=== PATIENT | male | born 1955 | race Caucasian/White ===

== ENCOUNTER 2017-11-04 08:23 | Day surgery (SDC) | payer MEDICARE | END 2017-11-04 10:00 | disposition home or self-care (01) | LOC: SDC-PAIN 08:23 | PROVIDERS: ATTEND Internal Medicine | DX: Z53.9 Procedure and treatment not carried out, unspecified reason (principal) ==

== ENCOUNTER 2019-04-21 03:05 | Observation (INO) | payer MEDICARE ==
[2019-04-21] MEDS ORDERED: Sodium Chloride 0.9% 1000 ML 1,000 ML IV SCH ×2 (03:30→05:30)
--- NOTE | 2019-04-21 03:33 | ERPHSYRPT ---
- History of Present Illness Time Seen by Provider: 04/21/19 03:28 Source: patient Exam Limitations: no limitations Patient Subjective Stated Complaint: Confusion Triage Nursing Assessment: Patient brought into ED via EMS and transferred to bed. Patient here for confusion. Patient's son calls him every night from [place] to check on patient. Patient wasn't acting right so patient's son called aunt to go check on him. When aunt arrived she stated patient was alert, but confused. Patient Alert to person and place, but disoriented to time. 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 Patient able to MUSE well. Patient denies pain or discomfort. Physician History: 64-year-old white male brought by medics with complaint that the patient was "not acting right. Patient apparently noted by his son in [place] that the patient wasn't acting right this apparently contacted the patient's aunt who contacted medics. Patient is oriented to person and place he is not oriented to time. He feels like he might be having a problem with his blood sugars., Patient denies fever shortness of breath chest pain abdominal pain nausea vomiting Past medical history includes chronic back pain, high blood pressure, diabetes Past surgical history includes eye surgery Social history patient denies tobacco alcohol or illicit drug use Timing/Duration: today Severity: moderate Modifying Factors: Improves With: nothing Associated Symptoms: other (patient was thought to be not acting right by family ), No nausea, No vomiting, No abdominal pain, No shortness of breath, No heartburn, No diaphoresis, No cough, No chills, No chest pain, No fever, No headaches, No loss of appetite, No malaise, No rash, No syncope, No seizure, No weakness Allergies/Adverse Reactions: No Known Drug Allergies Allergy (Verified 04/21/19 03:08) Home Medications: Atenolol 50 mg [Tenormin 50 mg] 50 mg PO DAILY 01/08/17 [History] Gabapentin [Neurontin] 800 mg PO BID 01/08/17 [History] Insulin Aspart [Novolog Flexpen] 16 unit SQ TID 01/08/17 [History] Nortriptyline HCl 25 mg PO DAILY 01/08/17 [History] Sennosides [Senna] 8.6 mg PO DAILY 01/08/17 [History] Lisinopril 20 mg [Zestril 20 MG] 20 mg PO DAILY 12/08/17 [History] Amlodipine Besylate 10 mg PO DAILY 04/21/19 [History] Atorvastatin Calcium 20 mg PO DAILY 04/21/19 [History] Insulin Glargine,Hum.rec.anlog [Lantus] 70 units SQ HS 04/21/19 [History] Hx Influenza Vaccination/Date Given: No Hx Pneumococcal Vaccination/Date Given: No Immunizations Up to Date: Yes - Review of Systems Constitutional: No Fever, No Chills Eyes: No Symptoms Ears, Nose, & Throat: No Symptoms Respiratory: No Cough, No Dyspnea Cardiac: No Chest Pain, No Edema, No Syncope Abdominal/Gastrointestinal: No Abdominal Pain, No Nausea, No Vomiting, No Diarrhea Genitourinary Symptoms: No Dysuria Musculoskeletal: No Back Pain, No Neck Pain Neurological: Other (family thought patient was not acting right), No No Symptoms, No Dizziness, No Focal Weakness, No Gait Changes, No Headache, No Irritability, No Lethargy, No Paralysis, No Parasthesia, No Seizure, No Sensory Changes, No Speech Changes, No Tics, No Tremors, No Vertigo Psychological: No Symptoms Endocrine: No Symptoms All Other Systems: Reviewed and Negative - Past Medical History Neurological History: No Pertinent History ENT History: No Pertinent History Cardiac History: Hypertension Respiratory History: No Pertinent History Endocrine Medical History: Diabetes Type II, Other Musculoskeletal History: No Pertinent History GI Medical History: No Pertinent History History: No Pertinent History Psycho-Social History: No Pertinent History Male Reproductive Disorders: No Pertinent History Other Medical History: IDDM, KIDNEY FAILURE - Past Surgical History Past Surgical History: No Neuro Surgical History: No Pertinent History Cardiac: No Pertinent History Respiratory: No Pertinent History Gastrointestinal: No Pertinent History Genitourinary: No Pertinent History Musculoskeletal: No Pertinent History Male Surgical History: No Pertinent History - Social History Smoking Status: Never smoker Exposure to second hand smoke: No Drug Use: none Patient Lives Alone: No - Nursing Vital Signs Nursing Vital Signs: Initial Vital Signs Pulse Rate 75 04/21/19 03:08 Respiratory Rate 18 04/21/19 03:08 Blood Pressure 174/109 04/21/19 03:08 O2 Sat by Pulse Oximetry 96 04/21/19 03:08 Pain Scale Pain Intensity 0 - Physical Exam General Appearance: no apparent distress, alert, other (wwell-developed well- nourished white male oriented to person and place ) Eye Exam: other (pupils are small, hypertelorism extraocular muscles are intacted, sclera are somewhat injected) Ears, Nose, Throat Exam: normal ENT inspection, TMs normal, pharynx normal, moist mucous membranes Neck Exam: normal inspection, non-tender, supple, full range of motion Respiratory Exam: normal breath sounds, lungs clear, No respiratory distress Cardiovascular Exam: regular rate/rhythm, normal heart sounds, normal peripheral pulses, capillary refill <2 sec Gastrointestinal/Abdomen Exam: soft, normal bowel sounds, No tenderness, No mass Back Exam: normal inspection Extremity Exam: normal inspection, normal range of motion, pelvis stable Neurologic Exam: 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, 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, sensation nml, other (patient alert, oriented to person and place, cranial nerves II though XII intact, die cast die maker equal 5 over 5 no pronator drift normal finger to nose speech normal), No oriented x 3 (Oriented to person and palce), No motor deficits, No sensory deficit Skin Exam: normal color, warm, dry, No rash Lymphatic Exam: No adenopathy SpO2 Interpretation: normal (96%) SpO2: 96 - Course Nursing assessment & vital signs reviewed: Yes EKG Interpreted by Me: RATE (80 bpm), Sinus Rhythm, NORMAL AXIS, Other (EKG sinus rhythm with artif 80 beats per minute nor Q waves in lead [address] or T wave changes no old EKG for comparison.) - CT Exams Head CT Interpretation: Tele-radiologist Report (head CT: Impression: No intracranial abnormities) Ordered Tests: Active Orders 24 hr Category Date Time Status EKG-ER Only STAT Care 04/21/19 03:25 Active IV Insertion STAT Care 04/21/19 03:25 Active Pulse Oximetry (ED) STAT Care 04/21/19 03:25 Active HEAD WITHOUT CONTRAST [CT] Stat Exams 04/21/19 03:25 Taken ACETAMINOPHEN Stat Lab 04/21/19 03:40 Completed CBC W DIFF Stat Lab 04/21/19 03:40 Completed CMP Stat Lab 04/21/19 03:40 Completed ETHYL ALCOHOL Stat Lab 04/21/19 03:40 Completed Lactic Acid Stat Lab 04/21/19 03:55 Completed Manual Differential NC Stat Lab 04/21/19 03:40 Completed SALICYLATE Stat Lab 04/21/19 03:40 Completed TSH [TSH, 3RD Generation] Stat Lab 04/21/19 03:40 Completed UA W/RFX UR CULTURE Stat Lab 04/21/19 04:35 Completed Urine Triage Profile Stat Lab 04/21/19 04:35 Completed VENOUS BLOOD GAS Stat Lab 04/21/19 03:55 Completed Medication Summary Generic Name Dose Route Start Last Admin Trade Name Soila PRN Reason Stop Dose Admin Sodium Chloride 1,000 mls @ 100 mls/hr 04/21/19 03:30 04/21/19 03:44 Sodium Chloride 0.9% 1000 Ml IV 05/21/19 03:29 100 mls/hr .Q10H LEONIDES Administration Lab/Rad Data: Laboratory Result Diagrams 04/21/19 03:40 04/21/19 03:40 Laboratory Results 04/21/19 04/21/19 04/21/19 Range/Units 04:35 04:35 03:55 WBC (4.0-10.5) K/mm3 RBC (4.1-5.6) M/mm3 Hgb (12.5-18.0) gm/dl Hct (42-50) % MCV (78-100) fl MCH (26-32) pg MCHC (32-36) g/dl RDW (11.5-14.0) % Plt Count (150-450) K/mm3 MPV (6-9.5) fl Absolute Granulocytes (1.4-6.9) Segmented Neutrophils (36.-66.) % Lymphocytes (Manual) (24-44) % Monocytes (Manual) (0.0-12.0) % Eosinophils (Manual) (0.00-3.0) % Platelet Estimate (NORMAL) RBC Morphology pO2/FiO2 Ratio 21.0 % VBG pH 7.39 (7.32-7.42) VBG pCO2 at Pat Temp 44 (42-55) mm/Hg VBG pO2 at Pat Temp 32 (25-40) mm/Hg VBG HCO3 26.6 (22-28) meq/L VBG O2 Sat (Abdoul) 70.1 L (95-100) VBG Base Excess 1.2 (-2.0-2.0) VBG Hemoglobin 15.9 VBG Carboxyhemoglobin 3.2 (0.0-6.9) % T HGB POC Potassium 3.5 (3.5-5.1) Sodium (137-145) mmol/L Potassium (3.5-5.1) mmol/L Chloride (98-107) mmol/L Carbon Dioxide (22-30) mmol/L Anion Gap (5-15) MEQ/L BUN (9-20) mg/dL Creatinine (0.66-1.25) mg/dL Estimated GFR ML/MIN Glucose (74-106) mg/dL Lactic Acid 1.6 (0.4-2.0) Calcium (8.4-10.2) mg/dL Total Bilirubin (0.2-1.3) mg/dL AST (17-59) U/L ALT (0-50) U/L Alkaline Phosphatase (38-126) U/L Serum Total Protein (6.3-8.2) g/dL Albumin (3.5-5.0) g/dL Free T4 (0.76-1.46) ng/dL TSH 3rd Generation (0.47-4.68) mIU/L Urine Color YELLOW (YELLOW) Urine Appearance SLIGHTLY CLOUDY (CLEAR) Urine pH 6.0 (5-6) Ur Specific [place] 1.029 (1.005-1.025) Urine Protein >=500 (Negative) Urine Ketones SMALL (NEGATIVE) Urine Blood SMALL (0-5) James/ul Urine Nitrite NEGATIVE (NEGATIVE) Urine Bilirubin NEGATIVE (NEGATIVE) Urine Urobilinogen NEGATIVE (0-1) mg/dL Ur Leukocyte Esterase NEGATIVE (NEGATIVE) Urine WBC (Auto) 3-5 (0-5) /HPF Urine RBC (Auto) 3-5 (0-2) /HPF U Hyaline Cast (Auto) 0-2 (0-2) /LPF U Epithel Cells (Auto) NONE (FEW) /HPF Urine Bacteria (Auto) NONE (NEGATIVE) /HPF Urine Mucus (Auto) SLIGHT (NEGATIVE) /HPF Urine Culture Reflexed NO (NO) Urine Glucose >=500 (NEGATIVE) mg/dL Salicylates (2-20) mg/dL Urine Opiates Level NEGATIVE (NEGATIVE) Ur Methadone NEGATIVE (NEGATIVE) Acetaminophen (10-30) ug/ml Urine Barbiturates NEGATIVE (NEGATIVE) Ur Phencyclidine (PCP) NEGATIVE (NEGATIVE) Urine Amphetamine NEGATIVE (NEGATIVE) U Benzodiazepine Level NEGATIVE (NEGATIVE) Urine Cocaine NEGATIVE (NEGATIVE) Urine Marijuana (THC) NEGATIVE (NEGATIVE) Ethyl Alcohol (0-10) mg/dL 04/21/19 04/21/19 04/21/19 Range/Units 03:40 03:40 03:40 WBC (4.0-10.5) K/mm3 RBC (4.1-5.6) M/mm3 Hgb (12.5-18.0) gm/dl Hct (42-50) % MCV (78-100) fl MCH (26-32) pg MCHC (32-36) g/dl RDW (11.5-14.0) % Plt Count (150-450) K/mm3 MPV (6-9.5) fl Absolute Granulocytes (1.4-6.9) Segmented Neutrophils (36.-66.) % Lymphocytes (Manual) (24-44) % Monocytes (Manual) (0.0-12.0) % Eosinophils (Manual) (0.00-3.0) % Platelet Estimate (NORMAL) RBC Morphology pO2/FiO2 Ratio % VBG pH (7.32-7.42) VBG pCO2 at Pat Temp (42-55) mm/Hg VBG pO2 at Pat Temp (25-40) mm/Hg VBG HCO3 (22-28) meq/L VBG O2 Sat (Abdoul) (95-100) VBG Base Excess (-2.0-2.0) VBG Hemoglobin VBG Carboxyhemoglobin (0.0-6.9) % T HGB POC Potassium (3.5-5.1) Sodium 137 (137-145) mmol/L Potassium 3.5 (3.5-5.1) mmol/L Chloride 100 (98-107) mmol/L Carbon Dioxide 26 (22-30) mmol/L Anion Gap 15.1 H (5-15) MEQ/L BUN 18 (9-20) mg/dL Creatinine 1.85 H (0.66-1.25) mg/dL Estimated GFR 39.6 ML/MIN Glucose 240 H (74-106) mg/dL Lactic Acid (0.4-2.0) Calcium 9.2 (8.4-10.2) mg/dL Total Bilirubin 1.40 H (0.2-1.3) mg/dL AST 60 H (17-59) U/L ALT 47 (0-50) U/L Alkaline Phosphatase 117 (38-126) U/L Serum Total Protein 7.8 (6.3-8.2) g/dL Albumin 4.1 (3.5-5.0) g/dL Free T4 1.50 H (0.76-1.46) ng/dL TSH 3rd Generation 8.770 H (0.47-4.68) mIU/L Urine Color (YELLOW) Urine Appearance (CLEAR) Urine pH (5-6) Ur Specific [place] (1.005-1.025) Urine Protein (Negative) Urine Ketones (NEGATIVE) Urine Blood (0-5) James/ul Urine Nitrite (NEGATIVE) Urine Bilirubin (NEGATIVE) Urine Urobilinogen (0-1) mg/dL Ur Leukocyte Esterase (NEGATIVE) Urine WBC (Auto) (0-5) /HPF Urine RBC (Auto) (0-2) /HPF U Hyaline Cast (Auto) (0-2) /LPF U Epithel Cells (Auto) (FEW) /HPF Urine Bacteria (Auto) (NEGATIVE) /HPF Urine Mucus (Auto) (NEGATIVE) /HPF Urine Culture Reflexed (NO) Urine Glucose (NEGATIVE) mg/dL Salicylates < 1.0 L (2-20) mg/dL Urine Opiates Level (NEGATIVE) Ur Methadone (NEGATIVE) Acetaminophen < 10 L (10-30) ug/ml Urine Barbiturates (NEGATIVE) Ur Phencyclidine (PCP) (NEGATIVE) Urine Amphetamine (NEGATIVE) U Benzodiazepine Level (NEGATIVE) Urine Cocaine (NEGATIVE) Urine Marijuana (THC) (NEGATIVE) Ethyl Alcohol < 10 (0-10) mg/dL 04/21/19 Range/Units 03:40 WBC 9.5 (4.0-10.5) K/mm3 RBC 5.30 (4.1-5.6) M/mm3 Hgb 15.3 (12.5-18.0) gm/dl Hct 44.9 (42-50) % MCV 84.7 (78-100) fl MCH 28.9 (26-32) pg MCHC 34.1 (32-36) g/dl RDW 14.0 (11.5-14.0) % Plt Count 274 (150-450) K/mm3 MPV 10.2 H (6-9.5) fl Absolute Granulocytes 6.93 H (1.4-6.9) Segmented Neutrophils 77 H (36.-66.) % Lymphocytes (Manual) 16 L (24-44) % Monocytes (Manual) 6 (0.0-12.0) % Eosinophils (Manual) 1 (0.00-3.0) % Platelet Estimate NORMAL (NORMAL) RBC Morphology NORMAL pO2/FiO2 Ratio % VBG pH (7.32-7.42) VBG pCO2 at Pat Temp (42-55) mm/Hg VBG pO2 at Pat Temp (25-40) mm/Hg VBG HCO3 (22-28) meq/L VBG O2 Sat (Abdoul) (95-100) VBG Base Excess (-2.0-2.0) VBG Hemoglobin VBG Carboxyhemoglobin (0.0-6.9) % T HGB POC Potassium (3.5-5.1) Sodium (137-145) mmol/L Potassium (3.5-5.1) mmol/L Chloride (98-107) mmol/L Carbon Dioxide (22-30) mmol/L Anion Gap (5-15) MEQ/L BUN (9-20) mg/dL Creatinine (0.66-1.25) mg/dL Estimated GFR ML/MIN Glucose (74-106) mg/dL Lactic Acid (0.4-2.0) Calcium (8.4-10.2) mg/dL Total Bilirubin (0.2-1.3) mg/dL AST (17-59) U/L ALT (0-50) U/L Alkaline Phosphatase (38-126) U/L Serum Total Protein (6.3-8.2) g/dL Albumin (3.5-5.0) g/dL Free T4 (0.76-1.46) ng/dL TSH 3rd Generation (0.47-4.68) mIU/L Urine Color (YELLOW) Urine Appearance (CLEAR) Urine pH (5-6) Ur Specific [place] (1.005-1.025) Urine Protein (Negative) Urine Ketones (NEGATIVE) Urine Blood (0-5) James/ul Urine Nitrite (NEGATIVE) Urine Bilirubin (NEGATIVE) Urine Urobilinogen (0-1) mg/dL Ur Leukocyte Esterase (NEGATIVE) Urine WBC (Auto) (0-5) /HPF Urine RBC (Auto) (0-2) /HPF U Hyaline Cast (Auto) (0-2) /LPF U Epithel Cells (Auto) (FEW) /HPF Urine Bacteria (Auto) (NEGATIVE) /HPF Urine Mucus (Auto) (NEGATIVE) /HPF Urine Culture Reflexed (NO) Urine Glucose (NEGATIVE) mg/dL Salicylates (2-20) mg/dL Urine Opiates Level (NEGATIVE) Ur Methadone (NEGATIVE) Acetaminophen (10-30) ug/ml Urine Barbiturates (NEGATIVE) Ur Phencyclidine (PCP) (NEGATIVE) Urine Amphetamine (NEGATIVE) U Benzodiazepine Level (NEGATIVE) Urine Cocaine (NEGATIVE) Urine Marijuana (THC) (NEGATIVE) Ethyl Alcohol (0-10) mg/dL - Progress Progress: improved Progress Note: 04/21/19 05:07 This is a 64-year-old white male with history of chronic back pain, high blood pressure, diabetes He arrives with medics the patient apparently had been talking to his son who lives in [place] and his son felt like the patient just wasn't himself. The patient aunt came out and fell to the patient still wasn't himself. Medics were summoned patient felt with that he had a high blood sugar however his blood sugar was around 140 initially patient did not want to come in however medics were summoned again to the patient's house and they brought him into [place] emergency room to be evaluated. On arrival patient is oriented to person and place he does not know the date or the year. He has normal speech. He has no facial droop. 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 He is able to move all extremities. There is no pronator drift. Patient without focal deficits. Patient had a viral severe temperature 90.2 pulse 75 respirations 18 blood pressure initial 174 109 it is now 197/98 oxygen saturation is 96% patient has an EKG remarkable for sinus rhythm 80 beats per minute normal axis no acute ST or T wave changes are noted patient's head CT is read by virtual radiology as normal head CT Patient with chemistry showing sodium 137 potassium 3.5 chloride 100 bicarbonate 26 BUN 18 creatinine 1.85 glucose is 240 total bilirubin is somewhat elevated at 1.4 AST is 60 anion gap is 15.1 acetaminophen level is less than 10 salicylate level is less than 1.0 alcohol is less than 10 Urine drug screen is negative Venous gases pH 7.39 PCO2 44 patient's thyroid studies free T4-1 0.5 normal is 0.76-1.46. TSH is 8.77 normal is 0.472 4.68 Patient is given normal saline at 100 mL per hour I discussed the patient's case with Dr. wagoner. Will go ahead and place patient on observation provide IV fluids continued telemetry continue every [address] And place patient on sliding scale insulin coverage. Impression 1 mental status change. 2 confusion. - Departure Departure Disposition: Observation Clinical Impression: Confusion Change in mental status Qualifiers: Altered mental status type: unspecified Qualified Code(s): R41.82 - Altered mental status, unspecified Condition: Fair Critical Care Time: No Referrals: TALIA EUCEDA [Primary Care Provider] -
[2019-04-21] MEDS ORDERED: Sodium Chloride 0.9% 1000 ML 1,000 ML ONE (03:42)
[2019-04-21 04:01] LABS: Lactic Acid 1.6 (0.4-2.0); VBG BASE EXCESS 1.2 (-2.0-2.0); VBG CARBOXYHEMOGLOBIN 3.2 % T HGB (0.0-6.9); VBG HCO3- 26.6 meq/L (22-28); VBG HEMOGLOBIN 15.9; VBG O2 SATURATION 70.1 (95-100); VBG POTASSIUM 3.5 (3.5-5.1); VBG pH 7.39 (7.32-7.42)
[2019-04-21 04:03] LABS: Granulocyte Absolute (ANC) 6.93 (1.4-6.9); Hematocrit 44.9 % (42-50); Hemoglobin 15.3 gm/dl (12.5-18.0); Mean Cell Volume 84.7 fl (78-100); Mean Corpuscular Hemoglobin 28.9 pg (26-32); Mean Corpuscular Hgb Concent. 34.1 g/dl (32-36); Mean Platelet Volume 10.2 fl (6-9.5); Platelet Count 274 K/mm3 (150-450); White Blood Count 9.5 K/mm3 (4.0-10.5)
[2019-04-21 04:13] LABS: ALBUMIN 4.1 g/dL (3.5-5.0); ALKALINE PHOSPHATASE 117 U/L (38-126); ANION GAP 15.1 MEQ/L (5-15); BLOOD UREA NITROGEN 18 mg/dL (9-20); CHLORIDE 100 mmol/L (98-107); Calcium 9.2 mg/dL (8.4-10.2); Carbon Dioxide 26 mmol/L (22-30); Creatinine 1 1.85 mg/dL (0.66-1.25); Glucose 240 mg/dL (74-106); Potassium 3.5 mmol/L (3.5-5.1); SGOT/AST 60 U/L (17-59); SGPT/ALT 47 U/L (0-50); SODIUM 137 mmol/L (137-145); Total Protein 7.8 g/dL (6.3-8.2)
[2019-04-21 04:14] LABS: ACETAMINOPHEN < 10 ug/ml (10-30); ETHYL ALCOHOL < 10 mg/dL (0-10); SALICYLATE < 1.0 mg/dL (2-20)
[2019-04-21 04:47] LABS: Eosinophil 1 % (0.00-3.0); Lymphocytes 16 % (24-44); Monocyte 6 % (0.0-12.0); Neutrophils 77 % (36.-66.); Platelet Estimate NORMAL (NORMAL); Total Cells Counted 100
[2019-04-21 04:50] LABS: Appearance SLIGHTLY CLOUDY (CLEAR); Bilirubin NEGATIVE (NEGATIVE); Blood SMALL Ery/ul (0-5); Glucose >=500 mg/dL (NEGATIVE); Hyaline Casts 0-2 /LPF (0-2); Ketones SMALL (NEGATIVE); Leukocyte Esterase NEGATIVE (NEGATIVE); Mucus SLIGHT /HPF (NEGATIVE); Nitrite NEGATIVE (NEGATIVE); Protein,Urine Dip >=500 (Negative); Specific Gravity 1.029 (1.005-1.025); Urobilinogen NEGATIVE mg/dL (0-1)
[2019-04-21 04:58] LABS: Amphetamine,Urine NEGATIVE (NEGATIVE); Barbiturate,Urine NEGATIVE (NEGATIVE); Benzodiazepine,Urine NEGATIVE (NEGATIVE); Cocaine,Urine NEGATIVE (NEGATIVE); Methadone,Urine NEGATIVE (NEGATIVE); Opiate,Urine NEGATIVE (NEGATIVE); PCP,Urine NEGATIVE (NEGATIVE); THC,Urine NEGATIVE (NEGATIVE)
[2019-04-21] MEDS: NovoLOG Insulin SQ PRN ×2 (08:12→10:56)
--- NOTE | 2019-04-21 08:44 | XRAY ---
Indication: Altered mental status. High blood sugar. Multiple contiguous axial images obtained through the head without contrast. Comparison: None Normal appearing brain parenchyma, ventricles, and bony calvarium. Visualized paranasal sinuses and mastoid air cells are clear. Impression: Normal CT head without contrast exam. Comment: Preliminary interpretation was made by [facility]. No discrepancy. CTDI 69.38
[2019-04-21 10:53] VITALS: BP 136/84; PULSE 78; O2SAT 98
--- NOTE | 2019-04-25 08:57 | SSS ---
DISCHARGE DIAGNOSES: 1) CHANGE IN MENTAL STATUS. 2) DIABETES MELLITUS TYPE 2. 3) DIABETIC PERIPHERAL NEUROPATHY. 4) DIABETIC NEPHROPATHY. 5) HYPERTENSION. HISTORY: The patient is a 64 year-old white male patient who apparently lives alone. His mental capacity is somewhat diminished routinely. Apparently his son calls him every night from [place] to check on him and he felt he was a bit off. He therefore called the patient's aunt who went in and checked on him and was found to be somewhat confused. He was brought into the emergency room and evaluation was performed. Nothing specific was found including negative CT scan of the head. He was brought in for observation, neural status checks. By the morning the patient was feeling much better, was answering all questions appropriately and was felt to be ready for discharge home. PHYSICAL EXAMINATION: The patient's vital signs in the emergency room showed a pulse of 75, respiratory rate 18, blood pressure 174/109. O2 saturation 96%. HEENT: Normocephalic, atraumatic. Pupils equal round reactive to light. Extraocular movements intact. Oropharynx is pink and moist. NECK: Supple without lymphadenopathy, thyromegaly or JVD. CHEST: Clear to auscultation. HEART: Regular rate and rhythm without murmurs, rubs or gallops. ABDOMEN: Soft. No palpable masses. EXTREMITIES: Without cyanosis, clubbing or edema. There was noted some redness over the shins but it was not warm or tender. The feet were closely examined and found no evidence of any wounds. NEUROLOGIC: The patient's neurologic status presently is alert and oriented x3. He actively gave day, date, time, place and President. LAB DATA AND TESTS: The lab studies showed his TSH to be somewhat elevated at 8.77. His hemoglobin was 15.3, PLT count 274,000, white blood cell count 9,500. His UA was slightly cloudy with specific gravity of 1.029, greater than 500 protein and glucose, 3 to 5 white blood cells and red blood cells on the urine. Urine drug screen was negative. Tylenol, acetaminophen and alcohol were all essentially negative. His free T4 was 1.50 which is slightly high. His sugar was 240, BUN 18, creatinine 1.85. Electrolytes were normal. Total bilirubin was slightly high at 1.40. Venous blood gas showed pH 7.39, pCO2 44. Again the CT scan of the head showed no intracranial abnormalities. HOSPITAL COURSE: At this point the patient is essentially back to normal according to his aunt and being awake and alert, sitting up on the side of the bed answering all questions appropriately the patient was felt to be okay for discharge home. The patient and his aunt did report that there will be someone staying with him over the next couple of days 11/05 for monitoring and they are aware that they can of course bring him back to the hospital any time if he feels like he has any deterioration in his status.
== END 2019-04-21 12:00 | disposition home or self-care (01) ==
LOC: ED 03:05 → MED SURG 05:23
PROVIDERS: ADMIT Internal Medicine; ATTEND Internal Medicine
DX: R41.82 Altered mental status, unspecified (principal); E11.42 Type 2 diabetes mellitus with diabetic polyneuropathy; E11.21 Type 2 diabetes mellitus with diabetic nephropathy; I10 Essential (primary) hypertension; Z79.4 Long term (current) use of insulin; Z79.899 Other long term (current) drug therapy
CPT/HCPCS: 36000; 36415; 70450; 80053; 80307; 81001; 82140; 82805; 82962; 83605; 84439; 84443; 85025; 93005; 93268; 94760; 96360; 96361; 99285; G0378; G0480; G0481; A9270-GY

== ENCOUNTER 2021-01-20 14:58 | Observation (INO) | payer MEDICARE ==
[2021-01-20] MEDS ORDERED: APRESOLINE 20 MG/ML INJ IV ONE ×3 (15:24→20:34)
[2021-01-20] MEDS ORDERED: Sodium Chloride 0.9% 1000 ML 1,000 ML ONE ×2 (15:24→22:34)
[2021-01-20] MEDS ORDERED: APRESOLINE 20 MG/ML INJ ONE ×2 (15:24→16:25)
[2021-01-20] MEDS: Sodium Chloride 0.9% 1000 ML 1,000 ML IV SCH ×2 (15:26→22:55)
--- NOTE | 2021-01-20 15:35 | ERPHSYRPT ---
- History of Present Illness Time Seen by Provider: 01/20/21 15:00 Source: patient, family, EMS Exam Limitations: clinical condition Patient Subjective Stated Complaint: pt alert, but confused to last name,date and time, BS 231. unsure if pt had hes insulin today, Triage Nursing Assessment: pt arrived per ambulance, alert but confused, resp easy, skin w.d/p.he has redness and scabbing to left lower leg,pt is unsure what happened Physician History: 65 years old with history of hypertension, hyperlipidemia, diabetes mellitus insulin-dependent is brought in the ER with chief complaint of altered mental status/confusion by EMS. Per report patient is confused and not acting at his baseline since morning. According to EMS patient has this happened multiple times in the past when his blood sugar goes out of control. EMS reports patient son who is the physician and POA reported "patient needs insulin whenever his blood sugar goes more than 200 he acts confused". Patient is awake and alert but not oriented, follows some commands, moving all 4 extremities grossly no focal deficit. No fever reported. No vomiting or diarrhea reported. Denies any chest pain. Patient blood pressure is in 250s on presentation. Prompt CT head is obtained. History is limited secondary to his confusion. Timing/Duration: today, sudden, worse Severity: moderate Character of Deficits: other Deficits: no difficulties Baseline/Normal Cognition: alert oriented x 3 Current Cognition: alert but confused Baseline Gait: walks w/o assistance Associated Symptoms: confusion, fatigue, No fever, No loss of consciousness, No vomiting, No weakness, No numbness/tingling in legs/feet, No seizures, No slurred speech, No vision changes, No chest pain Allergies/Adverse Reactions: No Known Drug Allergies Allergy (Verified 01/20/21 15:20) Home Medications: Atenolol 50 mg [Tenormin 50 mg] 50 mg PO DAILY 01/08/17 [History] Gabapentin [Neurontin] 800 mg PO BID 01/08/17 [History] Insulin Aspart [Novolog Flexpen] 16 unit SQ TIDWM 01/08/17 [History] Nortriptyline HCl 25 mg PO DAILY 01/08/17 [History] Sennosides [Senna] 8.6 mg PO BID 01/08/17 [History] Lisinopril 20 mg [Zestril 20 MG] 20 mg PO DAILY 12/08/17 [History] Amlodipine Besylate 10 mg PO DAILY 04/21/19 [History] Atorvastatin Calcium 20 mg PO HS 04/21/19 [History] Insulin Glargine,Hum.rec.anlog [Lantus] 70 units SQ HS 04/21/19 [History] Hx Influenza Vaccination/Date Given: No Hx Pneumococcal Vaccination/Date Given: No Immunizations Up to Date: No (unknown) Travel Risk - International Travel Have you traveled outside of the country in past 3 weeks: No - Coronavirus Screening Are you exhibiting any of the following symptoms?: No Close contact with a COVID-19 positive Pt in past 14-21 Days: No - Vaccine Status Have you recieved a Covid-19 vaccination: No Gis Administrator: Unknown - Vaccination Dates Dates if Unknown: unknown - Review of Systems All Other Systems: Unable due to condition - Past Medical History Neurological History: No Pertinent History ENT History: No Pertinent History Cardiac History: Hypertension Respiratory History: No Pertinent History Endocrine Medical History: Diabetes Type II, Other Musculoskeletal History: No Pertinent History GI Medical History: No Pertinent History History: No Pertinent History Psycho-Social History: No Pertinent History Male Reproductive Disorders: No Pertinent History Other Medical History: IDDM, KIDNEY FAILURE - Past Surgical History Past Surgical History: No Neuro Surgical History: No Pertinent History Cardiac: No Pertinent History Respiratory: No Pertinent History Gastrointestinal: No Pertinent History Genitourinary: No Pertinent History Musculoskeletal: No Pertinent History Male Surgical History: No Pertinent History - Social History Smoking Status: Never smoker Exposure to second hand smoke: No Drug Use: none Patient Lives Alone: Yes - Nursing Vital Signs Nursing Vital Signs: Initial Vital Signs Temperature 97.0 F 01/20/21 14:59 Pulse Rate 51 L 01/20/21 14:59 Respiratory Rate 16 01/20/21 14:59 Blood Pressure 257/97 01/20/21 14:59 O2 Sat by Pulse Oximetry 97 01/20/21 14:59 Pain Scale Pain Intensity 0 - Rosalinda Coma Scale Best Eye Response ([place]): (4) open spontaneously Best Verbal Response ([place]): (4) confused conversation Best Motor Response ([place]): (6) obeys commands [place] Total: 14 - Physical Exam General Appearance: no apparent distress, alert Eye Exam: bilateral eye: normal inspection, PERRL, EOMI Ears, Nose, Throat Exam: normal ENT inspection, TMs normal, pharyngeal erythema Neck Exam: normal inspection, non-tender, supple, full range of motion Respiratory: normal breath sounds, lungs clear Cardiovascular: normal heart sounds, bradycardia Gastrointestinal: soft, normal bowel sounds, No tenderness Back Exam: normal inspection Extremity Exam: other (Bilateral lower extremities venous stasis with some erythema on the left with scabs. Nontender. 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 Exam: normal hearing, normal speech, PERRL, No facial asymmetry, No facial droop Motor/Sensory: no motor deficit, no sensory deficit DTR: bicep (R): 2+, bicep (L): 2+, knee (R): 2+, knee (L): 2+ Skin Exam: normal color SpO2 Interpretation: normal SpO2: 97 O2 Delivery: Room Air - Course EKG Interpreted by Me: RATE (54), Sinus Saleem, NORMAL AXIS, Other (Prolonged QT) Ordered Tests: Active Orders 24 hr Category Date Time Status Risk Manager STAT Care 01/20/21 15:08 Active EKG-ER Only STAT Care 01/20/21 15:07 Active [place] [Catheter-Winger [place]] STAT Care 01/20/21 16:19 Active IV Insertion STAT Care 01/20/21 15:07 Active IV Insertion-2nd Peripheral STAT Care 01/20/21 15:39 Active NPO (ED) STAT Care 01/20/21 15:07 Active POCT Glucose Check STAT Care 01/20/21 15:07 Active CHEST 1 VIEW (PORTABLE) Stat Exams 01/20/21 15:08 Taken HEAD WITHOUT CONTRAST [CT] Routine Exams 01/20/21 15:10 Taken BLOOD CULTURE Stat Lab 01/20/21 15:35 Ordered CBC W DIFF Stat Lab 01/20/21 15:25 Completed CMP Stat Lab 01/20/21 15:25 Completed CULTURE,URINE Stat Lab 01/20/21 16:19 Received Lactic Acid Stat Lab 01/20/21 15:25 Completed MAGNESIUM Stat Lab 01/20/21 15:25 Completed Manual Differential NC Stat Lab 01/20/21 15:25 Completed POCT GLUCOSE Stat Lab 01/20/21 15:41 Completed TROPONIN Q3H Lab 01/20/21 15:25 Completed TROPONIN Q3H Lab 01/20/21 18:10 Received TROPONIN Q3H Lab 01/20/21 21:15 Ordered TROPONIN Q3H Lab 01/21/21 00:15 Ordered TROPONIN Q3H Lab 01/21/21 03:15 Ordered TSH, 3RD Generation Stat Lab 01/20/21 15:25 Completed UA W/RFX UR CULTURE Stat Lab 01/20/21 16:19 Completed Urine Triage Profile Stat Lab 01/20/21 17:19 Completed VENOUS BLOOD GAS Urgent Lab 01/20/21 15:25 Completed Transfer Order Routine Transfer 01/20/21 Ordered Medication Summary Generic Name Dose Route Start Last Admin Trade Name Freq PRN Reason Stop Dose Admin Sodium Chloride 1,000 mls @ 125 mls/hr 01/20/21 15:15 01/20/21 15:26 Sodium Chloride 0.9% 1000 Ml IV 02/19/21 15:14 125 mls/hr .Q8H LEONIDES Administration Nicardipine HCl 25 mg/ Sodium 250 mls @ 0 mls/hr 01/20/21 18:17 01/20/21 18:23 Chloride IV 02/19/21 18:16 50 ml/hr .Q0M PRN 50 mls/hr TITRATE FOR BLOOD PRESSURE Administration Protocol Titrate Discontinued Medications Generic Name Dose Route Start Last Admin Trade Name Freq PRN Reason Stop Dose Admin Aspirin 324 mg 01/20/21 16:10 01/20/21 16:22 Baby Aspirin 81 Mg Chew PO 01/20/21 16:11 Not Given STAT ONE Aspirin 300 mg 01/20/21 16:23 01/20/21 16:27 Aspirin 600 Mg ID 01/20/21 16:24 300 mg STAT ONE Administration Aspirin Confirm 01/20/21 16:26 Aspirin 600 Mg Administered 01/20/21 16:27 Dose 600 mg .ROUTE .STK-MED ONE Hydralazine HCl 10 mg 01/20/21 15:24 01/20/21 15:26 Apresoline 20 Mg/Ml Inj IV 01/20/21 15:25 10 mg STAT ONE Administration Hydralazine HCl Confirm 01/20/21 15:24 Apresoline 20 Mg/Ml Inj Administered 01/20/21 15:25 Dose 20 mg .ROUTE .STK-MED ONE Hydralazine HCl 10 mg 01/20/21 16:21 01/20/21 16:27 Apresoline 20 Mg/Ml Inj IV 01/20/21 16:22 10 mg STAT ONE Administration Hydralazine HCl Confirm 01/20/21 16:25 Apresoline 20 Mg/Ml Inj Administered 01/20/21 16:26 Dose 20 mg .ROUTE .STK-MED ONE Piperacillin Sod/Tazobactam 100 mls @ 200 mls/hr 01/20/21 16:48 01/20/21 17:00 Sod 3.375 gm/ Sodium Chloride IV 01/20/21 17:17 Not Given STAT ONE Sodium Chloride Confirm 01/20/21 16:54 Sodium Chloride 100ml Mini-Bag Plus Administered 01/20/21 16:55 Dose 100 mls @ ud IV .STK-MED ONE Sodium Chloride Confirm 01/20/21 18:19 Sodium Chloride 0.9% 250 Ml Administered 01/20/21 18:20 Dose 250 mls @ ud IV .STK-MED ONE Lorazepam 0.5 mg 01/20/21 16:21 01/20/21 16:27 Ativan 2 Mg/1 Ml Vial IV 01/20/21 16:22 0.5 mg STAT ONE Administration Lorazepam Confirm 01/20/21 16:25 Ativan 2 Mg/1 Ml Vial Administered 01/20/21 16:26 Dose 2 mg .ROUTE .STK-MED ONE Nicardipine HCl Confirm 01/20/21 18:19 Cardene 25 Mg/10 Ml Administered 01/20/21 18:20 Dose 25 mg IV .STK-MED ONE Piperacillin Sod/Tazobactam Sod Confirm 01/20/21 16:53 Zosyn 3.375 Gm Vial Administered 01/20/21 16:54 Dose 3.375 gm IV .STK-MED ONE Lab/Rad Data: Laboratory Result Diagrams 01/20/21 15:25 01/20/21 15:25 Laboratory Results 01/20/21 01/20/21 01/20/21 Range/Units 17:19 16:19 15:41 WBC (4.0-10.5) K/mm3 RBC (4.1-5.6) M/mm3 Hgb (12.5-18.0) gm/dl Hct (42-50) % MCV (78-100) fl MCH (26-32) pg MCHC (32-36) g/dl RDW (11.5-14.0) % Plt Count (150-450) K/mm3 MPV (7.5-11.0) fl Segmented Neutrophils (36.-66.) % Lymphocytes (Manual) (24-44) % Monocytes (Manual) (0.0-12.0) % Eosinophils (Manual) (0.00-3.0) % Platelet Estimate (NORMAL) RBC Morphology pO2/FiO2 Ratio % VBG pH (7.32-7.42) VBG pCO2 at Pat Temp (42-55) mm/Hg VBG pO2 at Pat Temp (25-40) mm/Hg VBG HCO3 (22-28) meq/L VBG O2 Sat (Abdoul) (95-100) VBG Base Excess (-2.0-2.0) VBG Hemoglobin VBG Carboxyhemoglobin (0.0-6.9) % T HGB POC Potassium (3.5-5.1) Sodium (137-145) mmol/L Potassium (3.5-5.1) mmol/L Chloride (98-107) mmol/L Carbon Dioxide (22-30) mmol/L Anion Gap (5-15) MEQ/L BUN (9-20) mg/dL Creatinine (0.66-1.25) mg/dL Estimated GFR ML/MIN Glucose (74-106) mg/dL POC Glucometer 187 H (74 to 106) mg/dL Lactic Acid (0.4-2.0) Calcium (8.4-10.2) mg/dL Magnesium (1.6-2.3) mg/dL Total Bilirubin (0.2-1.3) mg/dL AST (17-59) U/L ALT (0-50) U/L Alkaline Phosphatase (38-126) U/L Troponin I (0.000-0.034) ng/mL Serum Total Protein (6.3-8.2) g/dL Albumin (3.5-5.0) g/dL TSH 3rd Generation (0.47-4.68) mIU/L Urine Color YELLOW (YELLOW) Urine Appearance SLIGHTLY CLOUDY (CLEAR) Urine pH 6.0 (5-6) Ur Specific Benson 1.026 (1.005-1.025) Urine Protein >=500 (Negative) Urine Ketones TRACE (NEGATIVE) Urine Blood SMALL (0-5) James/ul Urine Nitrite NEGATIVE (NEGATIVE) Urine Bilirubin NEGATIVE (NEGATIVE) Urine Urobilinogen NEGATIVE (0-1) mg/dL Ur Leukocyte Esterase NEGATIVE (NEGATIVE) Urine WBC (Auto) 0-2 (0-5) /HPF Urine RBC (Auto) 3-5 (0-2) /HPF U Hyaline Cast (Auto) 3-5 (0-2) /LPF U Epithel Cells (Auto) NONE (FEW) /HPF Urine Bacteria (Auto) NONE (NEGATIVE) /HPF Urine Mucus (Auto) SLIGHT (NEGATIVE) /HPF Urine Culture Reflexed YES (NO) Urine Glucose >=500 (NEGATIVE) mg/dL Urine Opiates Level NEGATIVE (NEGATIVE) Ur Methadone NEGATIVE (NEGATIVE) Urine Barbiturates NEGATIVE (NEGATIVE) Ur Phencyclidine (PCP) NEGATIVE (NEGATIVE) Urine Amphetamine NEGATIVE (NEGATIVE) U Benzodiazepine Level NEGATIVE (NEGATIVE) Urine Cocaine NEGATIVE (NEGATIVE) Urine Marijuana (THC) NEGATIVE (NEGATIVE) 01/20/21 01/20/21 01/20/21 Range/Units 15:25 15:25 15:25 WBC (4.0-10.5) K/mm3 RBC (4.1-5.6) M/mm3 Hgb (12.5-18.0) gm/dl Hct (42-50) % MCV (78-100) fl MCH (26-32) pg MCHC (32-36) g/dl RDW (11.5-14.0) % Plt Count (150-450) K/mm3 MPV (7.5-11.0) fl Segmented Neutrophils (36.-66.) % Lymphocytes (Manual) (24-44) % Monocytes (Manual) (0.0-12.0) % Eosinophils (Manual) (0.00-3.0) % Platelet Estimate (NORMAL) RBC Morphology pO2/FiO2 Ratio 21.0 % VBG pH 7.46 H (7.32-7.42) VBG pCO2 at Pat Temp 37 L (42-55) mm/Hg VBG pO2 at Pat Temp 43 H (25-40) mm/Hg VBG HCO3 26.3 (22-28) meq/L VBG O2 Sat (Abdoul) 80.8 L (95-100) VBG Base Excess 2.5 H (-2.0-2.0) VBG Hemoglobin 13.7 VBG Carboxyhemoglobin 3.4 (0.0-6.9) % T HGB POC Potassium 3.3 L (3.5-5.1) Sodium 138 (137-145) mmol/L Potassium 3.4 L (3.5-5.1) mmol/L Chloride 102 (98-107) mmol/L Carbon Dioxide 26 (22-30) mmol/L Anion Gap 12.8 (5-15) MEQ/L BUN 25 H (9-20) mg/dL Creatinine 2.36 H (0.66-1.25) mg/dL Estimated GFR 29.8 ML/MIN Glucose 221 H (74-106) mg/dL POC Glucometer (74 to 106) mg/dL Lactic Acid (0.4-2.0) Calcium 8.6 (8.4-10.2) mg/dL Magnesium 2.0 (1.6-2.3) mg/dL Total Bilirubin 1.10 (0.2-1.3) mg/dL AST 32 (17-59) U/L ALT 17 (0-50) U/L Alkaline Phosphatase 102 (38-126) U/L Troponin I 0.074 H* (0.000-0.034) ng/mL Serum Total Protein 7.2 (6.3-8.2) g/dL Albumin 3.8 (3.5-5.0) g/dL TSH 3rd Generation 3.790 (0.47-4.68) mIU/L Urine Color (YELLOW) Urine Appearance (CLEAR) Urine pH (5-6) Ur Specific Benson (1.005-1.025) Urine Protein (Negative) Urine Ketones (NEGATIVE) Urine Blood (0-5) James/ul Urine Nitrite (NEGATIVE) Urine Bilirubin (NEGATIVE) Urine Urobilinogen (0-1) mg/dL Ur Leukocyte Esterase (NEGATIVE) Urine WBC (Auto) (0-5) /HPF Urine RBC (Auto) (0-2) /HPF U Hyaline Cast (Auto) (0-2) /LPF U Epithel Cells (Auto) (FEW) /HPF Urine Bacteria (Auto) (NEGATIVE) /HPF Urine Mucus (Auto) (NEGATIVE) /HPF Urine Culture Reflexed (NO) Urine Glucose (NEGATIVE) mg/dL Urine Opiates Level (NEGATIVE) Ur Methadone (NEGATIVE) Urine Barbiturates (NEGATIVE) Ur Phencyclidine (PCP) (NEGATIVE) Urine Amphetamine (NEGATIVE) U Benzodiazepine Level (NEGATIVE) Urine Cocaine (NEGATIVE) Urine Marijuana (THC) (NEGATIVE) 01/20/21 01/20/21 Range/Units 15:25 15:25 WBC 8.5 (4.0-10.5) K/mm3 RBC 4.74 (4.1-5.6) M/mm3 Hgb 13.8 (12.5-18.0) gm/dl Hct 41.6 L (42-50) % MCV 87.8 (78-100) fl MCH 29.1 (26-32) pg MCHC 33.2 (32-36) g/dl RDW 13.7 (11.5-14.0) % Plt Count 234 (150-450) K/mm3 MPV 10.7 (7.5-11.0) fl Segmented Neutrophils 82 H (36.-66.) % Lymphocytes (Manual) 14 L (24-44) % Monocytes (Manual) 3 (0.0-12.0) % Eosinophils (Manual) 1 (0.00-3.0) % Platelet Estimate NORMAL (NORMAL) RBC Morphology NORMAL pO2/FiO2 Ratio % VBG pH (7.32-7.42) VBG pCO2 at Pat Temp (42-55) mm/Hg VBG pO2 at Pat Temp (25-40) mm/Hg VBG HCO3 (22-28) meq/L VBG O2 Sat (Abdoul) (95-100) VBG Base Excess (-2.0-2.0) VBG Hemoglobin VBG Carboxyhemoglobin (0.0-6.9) % T HGB POC Potassium (3.5-5.1) Sodium (137-145) mmol/L Potassium (3.5-5.1) mmol/L Chloride (98-107) mmol/L Carbon Dioxide (22-30) mmol/L Anion Gap (5-15) MEQ/L BUN (9-20) mg/dL Creatinine (0.66-1.25) mg/dL Estimated GFR ML/MIN Glucose (74-106) mg/dL POC Glucometer (74 to 106) mg/dL Lactic Acid 1.5 (0.4-2.0) Calcium (8.4-10.2) mg/dL Magnesium (1.6-2.3) mg/dL Total Bilirubin (0.2-1.3) mg/dL AST (17-59) U/L ALT (0-50) U/L Alkaline Phosphatase (38-126) U/L Troponin I (0.000-0.034) ng/mL Serum Total Protein (6.3-8.2) g/dL Albumin (3.5-5.0) g/dL TSH 3rd Generation (0.47-4.68) mIU/L Urine Color (YELLOW) Urine Appearance (CLEAR) Urine pH (5-6) Ur Specific Benson (1.005-1.025) Urine Protein (Negative) Urine Ketones (NEGATIVE) Urine Blood (0-5) James/ul Urine Nitrite (NEGATIVE) Urine Bilirubin (NEGATIVE) Urine Urobilinogen (0-1) mg/dL Ur Leukocyte Esterase (NEGATIVE) Urine WBC (Auto) (0-5) /HPF Urine RBC (Auto) (0-2) /HPF U Hyaline Cast (Auto) (0-2) /LPF U Epithel Cells (Auto) (FEW) /HPF Urine Bacteria (Auto) (NEGATIVE) /HPF Urine Mucus (Auto) (NEGATIVE) /HPF Urine Culture Reflexed (NO) Urine Glucose (NEGATIVE) mg/dL Urine Opiates Level (NEGATIVE) Ur Methadone (NEGATIVE) Urine Barbiturates (NEGATIVE) Ur Phencyclidine (PCP) (NEGATIVE) Urine Amphetamine (NEGATIVE) U Benzodiazepine Level (NEGATIVE) Urine Cocaine (NEGATIVE) Urine Marijuana (THC) (NEGATIVE) - Progress Progress: improved, re-examined Progress Note: 01/20/21 17:44 Patient was much confused on presentation but moving all 4 extremities and following few commands. Prompt CT head is obtained which is negative for any acute findings. Patient blood pressure was in 250s, given hydralazine which improved but was again in 220s and given another dose of hydralazine and currently 169. Patient EKG did not show any acute ST elevation. Initial troponins are mildly elevated 0.067. Given rectal aspirin. Chest x-ray did not appreciated any obvious infiltrative process reviewed by me, official report is pending. Chemistry profile showed chronic renal failure with creatinine around baseline 2.3. Normal white count. Blood sugar was in 220s and improved to 180s on its own. Patient is feeling better on reevaluation but still confused. I believe patient has hypertensive encephalopathy. If blood pressure rebounds again in 200s, will be started on Cardene drip. I have discussed with son who is a physician, informed me that patient was not taking his blood pressure medications for the last few days as he came to [place] for few days and was benitez pposed to go back to [place] but stayed here more days. He also reported that his symptoms are consistent with hyperglycemia and it has happened in the past as well. I have discussed with Dr. Modi about possible admission, recommended discussion with son about not having cardiology services in here. I have discussed with son in detail who does not think patient needs to have cardiology evaluation and his elevated troponin could be secondary to cardiac, hypertensive encephalopathy or renal failure as patient is not complaining of any pain. Will trend cardiac enzyme. Discussed back with Dr. Steiner and patient is admitted. 01/20/21 18:25 Blood pressure is in 200s again, started on Cardene drip and patient would be sent to ICU. Dr. Steiner is aware of it. 01/20/21 18:[address] Juju Will see patient in: hospital (observation) Counseled pt/family regarding: lab results, diagnosis, rad results - Departure Departure Disposition: Observation Clinical Impression: Hypertensive encephalopathy, Elevated troponin, Hyperglycemia Condition: Stable Critical Care Time: Yes Critical Care Time(excluding separately billable procedures): Critical 30-74 mins Referrals: NELSON HOLDER [Primary Care Provider] -
[2021-01-20 15:40] LABS: Hematocrit 41.6 % (42-50); Hemoglobin 13.8 gm/dl (12.5-18.0); Mean Cell Volume 87.8 fl (78-100); Mean Corpuscular Hemoglobin 29.1 pg (26-32); Mean Corpuscular Hgb Concent. 33.2 g/dl (32-36); Mean Platelet Volume 10.7 fl (7.5-11.0); Platelet Count 234 K/mm3 (150-450); Red Blood Count 4.74 M/mm3 (4.1-5.6); Red Cell Distribution Width 13.7 % (11.5-14.0); White Blood Count 8.5 K/mm3 (4.0-10.5)
[2021-01-20 15:53] LABS: VBG BASE EXCESS 2.5 (-2.0-2.0); VBG CARBOXYHEMOGLOBIN 3.4 % T HGB (0.0-6.9); VBG HCO3- 26.3 meq/L (22-28); VBG HEMOGLOBIN 13.7; VBG O2 SATURATION 80.8 (95-100); VBG POTASSIUM 3.3 (3.5-5.1); VBG pH 7.46 (7.32-7.42)
[2021-01-20] MEDS ORDERED: BABY ASPIRIN 81 MG CHEW PO ONE (16:10)
[2021-01-20 16:18] LABS: Eosinophil 1 % (0.00-3.0); Lymphocytes 14 % (24-44); Monocyte 3 % (0.0-12.0); Neutrophils 82 % (36.-66.); Platelet Estimate NORMAL (NORMAL); Total Cells Counted 100
[2021-01-20] MEDS ORDERED: Ativan 2 MG/1 ML VIAL IV ONE (16:21)
[2021-01-20 16:23] LABS: ALBUMIN 3.8 g/dL (3.5-5.0); ANION GAP 12.8 MEQ/L (5-15); BILIRUBIN,TOTAL 1.1 mg/dL (0.2-1.3); Calcium 8.6 mg/dL (8.4-10.2); Creatinine 1 2.36 mg/dL (0.66-1.25); EST GLOMERULAR FILTRATION RATE 29.8 ML/MIN; Potassium 3.4 mmol/L (3.5-5.1); TSH, 3RD Generation 3.79 mIU/L (0.47-4.68); Total Protein 7.2 g/dL (6.3-8.2)
[2021-01-20] MEDS ORDERED: ASPIRIN 600 MG PR ONE (16:23)
[2021-01-20] MEDS ORDERED: Ativan 2 MG/1 ML VIAL ONE (16:25)
[2021-01-20] MEDS ORDERED: ASPIRIN 600 MG ONE (16:26)
[2021-01-20 16:37] LABS: Appearance SLIGHTLY CLOUDY (CLEAR); Bilirubin NEGATIVE (NEGATIVE); Blood SMALL Ery/ul (0-5); Glucose >=500 mg/dL (NEGATIVE); Ketones TRACE (NEGATIVE); Leukocyte Esterase NEGATIVE (NEGATIVE); Mucus SLIGHT /HPF (NEGATIVE); Nitrite NEGATIVE (NEGATIVE); Protein,Urine Dip >=500 (Negative); Specific Gravity 1.026 (1.005-1.025); Urobilinogen NEGATIVE mg/dL (0-1); WBC 0-2 /HPF (0-5)
[2021-01-20] MEDS ORDERED: Zosyn 3.375 GM Vial IV ONE (16:53)
[2021-01-20] MEDS ORDERED: Sodium Chloride 100ML MINI-BAG PLUS 0 ML IV ONE (16:54)
[2021-01-20] MEDS: Zosyn 3.375 GM Vial 3.375 GM in Sodium Chloride 100ML MINI-BAG PLUS 100 ML IV ONE ×2 (16:56→17:00)
[2021-01-20 17:40] LABS: Amphetamine,Urine NEGATIVE (NEGATIVE); Barbiturate,Urine NEGATIVE (NEGATIVE); Benzodiazepine,Urine NEGATIVE (NEGATIVE); Cocaine,Urine NEGATIVE (NEGATIVE); Methadone,Urine NEGATIVE (NEGATIVE); Opiate,Urine NEGATIVE (NEGATIVE); PCP,Urine NEGATIVE (NEGATIVE); THC,Urine NEGATIVE (NEGATIVE)
[2021-01-20] MEDS ORDERED: Sodium Chloride 0.9% 250 ML 250 ML IV ONE (18:19)
[2021-01-20] MEDS ORDERED: CARDENE 25 MG/10 ML IV ONE ×2 (18:19→23:55)
[2021-01-20] MEDS: CARDENE 25 MG/10 ML*** 25 MG in Sodium Chloride 0.9% 250 ML 240 ML IV PRN (18:23)
--- NOTE | 2021-01-20 19:36 | XRAY ---
Indication: Confusion. Speech issues. Stroke symptoms. Multiple contiguous axial images obtained through the head without contrast. Comparison: April 21, 2019. Normal appearing brain parenchyma, ventricles, and bony calvarium. Visualized paranasal sinuses and mastoid air cells are clear. Impression: Continued normal CT head without contrast exam. Comment: Preliminary interpretation was made by [facility]. No critical discrepancy.
--- NOTE | 2021-01-20 19:38 | XRAY ---
Indication: Acute mental status change. Stroke like symptoms. Comparison: None Portable chest slightly underinflated and clear. Heart is not enlarged for AP portable technique. Bony thorax intact with mild degenerative changes. Impression: Nonacute underinflated chest.
[2021-01-20 19:56] LABS: INFLUENZA A NEGATIVE (NEGATIVE); INFLUENZA B NEGATIVE (NEGATIVE); RESPIRATORY SYNCTIAL VIRUS NEGATIVE (Negative)
[2021-01-20] MEDS ORDERED: TYLENOL 325 MG PO PRN (20:34)
[2021-01-20] MEDS ORDERED: DUONEB 0.5-3 MG/3 ml Neb IH PRN (20:34)
[2021-01-20] MEDS ORDERED: HUMALOG SQ PRN (20:34)
[2021-01-20] MEDS ORDERED: Pepcid 20 MG VIAL IV SCH (22:00)
[2021-01-20] MEDS ORDERED: HIBICLENS 4% Scrub TOP PRN (22:19)
[2021-01-20] MEDS ORDERED: Bactroban OINTMENT ONE (22:36)
[2021-01-20] MEDS ORDERED: Pepcid 20 MG VIAL IV ONE (23:02)
[2021-01-20] MEDS ORDERED: Dextrose 5%/Water IV Soln. 250 ML 250 ML IV ONE (23:55)
[2021-01-21] MEDS: CARDENE 25 MG/10 ML*** 25 MG in Sodium Chloride 0.9% 250 ML 240 ML IV PRN (00:18)
[2021-01-21 02:19] VITALS: PULSE 76; O2SAT 96
[2021-01-21 03:18] VITALS: BP 143/62
[2021-01-21] MEDS ORDERED: Bactroban OINTMENT TP SCH (10:00)
== END 2021-01-21 03:45 | disposition short-term general hospital (02) ==
LOC: ED 14:58 → ICU 20:14
PROVIDERS: ADMIT Family Medicine; ATTEND Family Medicine
DX: I67.4 Hypertensive encephalopathy (principal); E78.5 Hyperlipidemia, unspecified; E11.65 Type 2 diabetes mellitus with hyperglycemia; Z79.4 Long term (current) use of insulin; R53.83 Other fatigue; Z79.899 Other long term (current) drug therapy
CPT/HCPCS: 0241U; 36000; 36415; 51701; 51702; 70450; 71045; 80053; 80307; 81001; 82805; 82947; 83036; 83605; 83735; 84443; 84484; 85025; 87040; 87086; 93005; 93041; 96365; 96374; 96375; 96376; 99285; 99291; G0378; J0360; J2060; A9270-GY